=== PATIENT | male | born 1940 | race Caucasian/White ===

== ENCOUNTER → 2016-12-24 | Outpatient (CLI) | payer MEDICARE, OTHER | END | disposition home or self-care (01) | LOC: Rad HDHVI 09:37 | PROVIDERS: ATTEND Internal Medicine Cardiovascular Disease | DX: I35.8 Other nonrheumatic aortic valve disorders (principal) | CPT/HCPCS: 93306 ==

== ENCOUNTER → 2019-10-06 | Emergency (ER) | payer MEDICARE, OTHER ==
[~2019-10-06] VITALS: Ht 177.8 cm; Wt 61.2 kg
[2019-10-06 11:21] LABS: Basophils # (auto) 0.1 10 ^3/uL (0-0.2); Basophils % (auto) 0.8 % (0.0-2.0); Eosinophils # (auto) 0 10 ^3/uL (0-0.8); Eosinophils % (auto) 0.3 % (0.0-7.0); Hematocrit 47.1 % (41.0-53.0); Hemoglobin 15.8 g/dL (13.5-17.5); Lymphocytes # (auto) 0.8 10 ^3/uL (0.4-5.4); Lymphocytes % (auto) 9.8 % (10.0-50.0); Mean Corpuscular Hemoglobin 31.9 pg (28.0-32.0); Mean Corpuscular Hgb Conc. 33.4 g/dL (32.0-36.0); Mean Corpuscular Volume 95.3 fL (80.0-100.0); Monocytes # (auto) 0.4 10 ^3/uL (0-1.3); Monocytes % (auto) 4.8 % (0.0-12.0); Neutrophils # (auto) 6.9 10 ^3/uL (1.6-8.6); Neutrophils % (auto) 84.3 % (37.0-80.0); Platelet Count (auto) 191 10^3/uL (140-450); Red Blood Cells 4.95 10^6/uL (4.5-5.90); Red Cell Distribution Width 12.9 % (11.8-14.3); White Blood Cell 8.2 10^3/uL (4.4-10.8)
[2019-10-06 11:36] LABS: INR 1.06 (0.9-1.15); Partial Thromboplastin Time 28.1 sec (23.64-32.05)
[2019-10-06 11:40] LABS: Albumin 3.7 g/dL (3.4-5.0); Calcium 9.2 mg/dL (8.5-10.1); Magnesium 2.3 mg/dL (1.6-2.6); Potassium 4.6 mmol/L (3.5-5.1)
[2019-10-06 11:46] LABS: BUN/Creatinine Ratio 26.3; Bilirubin, Total 0.7 mg/dL (0.2-1.0); Total Protein 8.1 g/dL (6.4-8.2)
[2019-10-06 12:15] VITALS: BP 130/77
== END | disposition home or self-care (01) ==
LOC: ER 10:36
DX: I62.00 Nontraumatic subdural hemorrhage, unspecified (principal); I11.0 Hypertensive heart disease with heart failure; I50.9 Heart failure, unspecified; F17.210 Nicotine dependence, cigarettes, uncomplicated; R77.8 Other specified abnormalities of plasma proteins
CPT/HCPCS: 36415; 70450; 71046; 80053; 83735; 83880; 84484; 85025; 85610; 85730; 93005

== ENCOUNTER → 2024-03-19 | Outpatient (CLI) | payer MEDICARE, OTHER ==
[~2024-03-19] MED LIST: ASPI81CH49 PO; CETI-120 PO; ESOM40CA83 PO; SIMV40TA18 PO
== END | disposition home or self-care (01) ==
LOC: Rad HDHVI 10:02
PROVIDERS: ATTEND Internal Medicine Cardiovascular Disease
DX: I11.0 Hypertensive heart disease with heart failure (principal); I50.43 Acute on chronic combined systolic (congestive) and diastolic (congestive) heart failure
CPT/HCPCS: 93306

== ENCOUNTER → 2024-03-27 | Outpatient (CLI) | payer MEDICARE, OTHER ==
[~2024-03-27] VITALS: Ht 177.8 cm; Wt 63.5 kg
[~2024-03-27] MED LIST changes: +ADENOSINE 53 MG in GIVE UN-DILUTED 0 ML IV ONE; +ADENOSINE 90 MG/30 ML INJ IV ONE
== END | disposition home or self-care (01) ==
LOC: Rad HDHVI 13:23
PROVIDERS: ATTEND Internal Medicine Cardiovascular Disease
DX: I49.1 Atrial premature depolarization (principal); I25.10 Atherosclerotic heart disease of native coronary artery without angina pectoris; I11.0 Hypertensive heart disease with heart failure; I50.43 Acute on chronic combined systolic (congestive) and diastolic (congestive) heart failure; E78.00 Pure hypercholesterolemia, unspecified; E86.1 Hypovolemia; I25.2 Old myocardial infarction; F17.210 Nicotine dependence, cigarettes, uncomplicated; Z86.73 Personal history of transient ischemic attack (TIA), and cerebral infarction without residual deficits
CPT/HCPCS: 78452; 93005; 96374; 96375; A9500; J0153

== ENCOUNTER → 2024-04-25 | Outpatient (CLI) | payer MEDICARE, OTHER ==
[~2024-04-25] MED LIST changes: -ADENOSINE 53 MG in GIVE UN-DILUTED 0 ML IV ONE; -ADENOSINE 90 MG/30 ML INJ IV ONE
[2024-04-25 10:48] VITALS: BP 110/70; PULSE 90; RESP 17; O2SAT 96
[2024-04-25 10:59] VITALS: BP 128/66; PULSE 86; RESP 16; O2SAT 92
== END | disposition home or self-care (01) ==
LOC: CHF HDHVI 10:49
PROVIDERS: ATTEND Internal Medicine Cardiovascular Disease
DX: Z01.818 Encounter for other preprocedural examination (principal); I50.9 Heart failure, unspecified; I25.10 Atherosclerotic heart disease of native coronary artery without angina pectoris
CPT/HCPCS: G0463

== ENCOUNTER → 2024-05-07 | Outpatient (CLI) | payer MEDICARE, OTHER ==
[~2024-05-07] MED LIST changes: +CETI10CA PO; +COCOOIL XX; +COEN30CA10 PO; +ESOM40CA39 PO; +FAMO20TA10 PO; +GING550C4 PO; +KRIL300C2 PO; +MULTCHW OR; +NAPHDRO11 OP; +NITR0.4S29 SL; +OMEGCAP2 PO; +POM; +POM PO; +TURM450C OR
[2024-05-07 09:59] VITALS: BP 130/71; PULSE 74; RESP 16; O2SAT 94
[2024-05-07 10:10] VITALS: BP 139/59; PULSE 76; RESP 16; O2SAT 94
--- NOTE | 2024-05-07 14:21 | DVH ---
XY CHEST TWO VIEWS ROUTINE CLINICAL HISTORY: PRE OP, pain COMPARISON: CHEST TWO VIEWS ROUTINE on DOS: 10/06/19 TECHNIQUE: Frontal and lateral view of the chest was obtained FINDINGS: Lines and Tubes: None Lungs: No focal consolidation. Pleura: No effusion. No pneumothorax. Cardiomediastinal contours: Unremarkable Bones: No acute osseous abnormality. IMPRESSION: No acute cardiopulmonary disease.
== END | disposition home or self-care (01) ==
LOC: Rad HDHVI 09:50
PROVIDERS: ATTEND Internal Medicine Cardiovascular Disease
DX: Z01.818 Encounter for other preprocedural examination (principal); I49.1 Atrial premature depolarization; R94.31 Abnormal electrocardiogram [ECG] [EKG]; R53.83 Other fatigue; R06.02 Shortness of breath; R07.9 Chest pain, unspecified
CPT/HCPCS: 36415; 71046; 80048; 85025; 85610; 85730; 93005; G0463

== ENCOUNTER 2024-05-10 07:09 | Day surgery (SDC) | payer MEDICARE, OTHER ==
[2024-05-07 12:10] LABS: Basophils # (auto) 0 10 ^3/uL (0-0.2); Basophils % (auto) 0.6 % (0.0-2.0); Eosinophils # (auto) 0.1 10 ^3/uL (0-0.8); Eosinophils % (auto) 1.8 % (0.0-7.0); Hematocrit 46.7 % (41.0-53.0); Hemoglobin 15.6 g/dL (13.5-17.5); Lymphocytes # (auto) 1.4 10 ^3/uL (0.4-5.4); Mean Corpuscular Hemoglobin 31.5 pg (28.0-32.0); Mean Corpuscular Hgb Conc. 33.4 g/dL (32.0-36.0); Mean Corpuscular Volume 94.5 fL (80.0-100.0); Monocytes # (auto) 0.5 10 ^3/uL (0-1.3); Monocytes % (auto) 9.9 % (0.0-12.0); Neutrophils % (auto) 60.7 % (37.0-80.0); Nucleated Red Blood Cells % 0.1 %; Platelet Count (auto) 183 10^3/uL (140-450); Red Blood Cells 4.94 10^6/uL (4.5-5.90); Red Cell Distribution Width 13.8 % (11.8-14.3)
[2024-05-07 12:19] LABS: INR 1.02 (0.9-1.15); Partial Thromboplastin Time 27.9 SEC (24.5-34.5); Prothrombin Time 10.8 sec (9.3-11.8)
[2024-05-07 12:55] LABS: Chloride 103 mmol/L (98-107); Potassium 4.8 mmol/L (3.5-5.1); Sodium 140 mmol/L (136-145)
[2024-05-07 12:56] LABS: Anion Gap 1 (5-15)
[2024-05-07 12:57] LABS: Calcium 9.8 mg/dL (8.7-10.4)
[2024-05-07 13:01] LABS: BUN/Creatinine Ratio 21.8 (10.0-20.0); Blood Urea Nitrogen 17 mg/dL (9-23); Glucose 90 mg/dL (74-106)
[2024-05-07 13:07] LABS: Carbon Dioxide 36 mmol/L (20-31)
[2024-05-10] VITALS (8 sets, daily range): BP systolic 116–156; BP diastolic 65–93; PULSE 63–78; RESP 12–21; O2SAT 90–96
[~2024-05-10] VITALS: Ht 177.8 cm; Wt 64.9 kg
[~2024-05-10 07:09] MED LIST changes: -ASPI81CH49 PO; -CETI-120 PO; -ESOM40CA83 PO; -SIMV40TA18 PO
[2024-05-10] MEDS ORDERED: IOHEXOL 350 MG/ML 100ML IJ ONE ×2 (07:30→09:06)
[2024-05-10] MEDS ORDERED: HEPARIN IN NS 1000Units/500mL 1,500 ML ONE (07:30)
[2024-05-10] MEDS ORDERED: LIDOCAINE 2%HCL (LOCAL ANESTH.) INJ 20ML MDV ONE ×2 (08:25)
[2024-05-10] MEDS ORDERED: ANGIOMAX 250 MG VIAL IV ONE (08:36)
[2024-05-10] MEDS ORDERED: SODIUM CHL 0.9% 0 ML ONE (08:37)
[2024-05-10] MEDS ORDERED: MIDAZOLAM HCL 2MG/2ML 2ml VIAL (1mg/ml) ONE (08:37)
[2024-05-10] MEDS ORDERED: fentaNYL CITRATE 100 MCG/2 ML VL ONE (08:37)
--- NOTE | 2024-05-10 10:42 | DVHHP ---
ADMIT DATE: 05/10/2024 HISTORY OF PRESENT ILLNESS: The patient is 83 years old well known to me with history of organic heart disease. A. Hypertension. B. Coronary artery disease. C. 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 D. Now with complex of increasing chest pain, shortness of breath with exertion. Stress Cardiolite shows the patient to have slightly more inferior wall reversibility and depressed left ventricular ejection fraction of 45%-50% and because of the above presentation, it was felt that the patient should undergo coronary angiography. Risks and benefits were explained to the patient. He is also having exertional chest discomfort as well at times and that too is concerning. PERTINENT MEDICAL HISTORY: Significant for: * Hypertension. * Abdominal aortic aneurysm, status post stent graft placement. * History of TIA and CVA as well * History of hyperlipidemia. REVIEW OF SYSTEMS: Denies any fever, chills, melena, hematochezia. No hematemesis or hemoptysis. No seizure disorder. No movement disorder. No history of any lung disease such as COPD or reactive airway disease. No history of tobacco or alcohol use. No history of any abdominal symptoms such as diverticulitis or diverticulosis. No history of any irritable bowel syndrome or inflammatory bowel disease. Denies any history of rheumatologic disorder as well. PHYSICAL EXAMINATION: VITAL SIGNS: Blood pressure is 143/80, pulse of 70, O2 saturation 98% on room air. HEENT: Pupils are reactive. Funduscopic exam shows no AV nicking, no exudates, no papilledema. Extraocular muscles are intact. Sclerae anicteric. Mucous membranes are dry. Oral mucosa moist. Posterior pharynx without any exudates. NECK: No nuchal rigidity appreciated. No cervical adenopathy. No supraclavicular adenopathy. Carotid pulses are 2+ and symmetrical. PULMONARY: Clear to auscultation. Tympanic to percussion. No rhonchi, no wheezes. No egophony. CARDIOVASCULAR: Regular rate without S3, without S4. PMI is not displaced. There is a 2/6 crescendo-decrescendo murmur along the left sternal border without any radiation. ABDOMEN: Soft. Nontender. Normal bowel sound. Liver approximately 5 cm by percussion. No epigastric tenderness. No suprapubic tenderness. No CVA tenderness. NEUROLOGIC: The patient is intact. DTRs are 2+ symmetrical. Cranial nerves 2 through 12 within normal limits. Sensory and motor modalities are intact. Negative for ataxia. Negative for Babinski. Negative for pronator drift. EXTREMITIES: 1+ pulses bilaterally as well. Thus, the patient with increasing symptoms of shortness of breath and some chest pain on exertion now to undergo coronary angiography to define coronary anatomy. Further recommendations after the angiogram. Mike Lino MD SA/[facility]ALIN[facility]/G[facility] TID: [id number] RECEIPT: [id number]
--- NOTE | 2024-05-10 10:42 | DVHDS ---
DATE OF DISCHARGE: 05/10/2024 DISCHARGE DIAGNOSES: * The patient with mild pulmonary hypertension. * Occluded right coronary artery with bridging collaterals from the left. Chronic previous angiogram similarly showed the same anatomy. * EF around 50%. * Mild mitral, aortic valve gradient. * Mild to moderate mitral regurgitation. At this time, continue all current medications, no changes are required. Aggressive risk modification. Pulmonary hypertensive therapy should be considered and the patient may benefit from EECP. Stable at the time of discharge. DISPOSITION: Home. ACTIVITY: As instructed. DIET: Will be 2 gram sodium diet. Mike Lino MD SA/SANDOR TID: [id number] RECEIPT: [id number]
--- NOTE | 2024-05-10 10:54 | DVHOP ---
DATE OF SURGERY: 05/10/2024 PROCEDURES PERFORMED: * Selective left and right coronary angiography. * Ventriculogram. * [place]-Lulu reading. * Conscious sedation. * Right iliac angiography. DESCRIPTION OF PROCEDURE: The patient was prepped and draped in a sterile condition. A 1% Xylocaine used to anesthetize the right groin. Using a Cook needle, the right femoral artery was engaged with Seldinger technique, a 6-Kyrgyz sheath in the right femoral artery. Similarly, a 6-[place]z sheath introduced in the right femoral vein. Using 6-K[place]z balloon-tipped thermodilution catheter, right-sided pressure tracings were obtained. Then, using a 6-[place] JL4 catheter and 6-[place] JR4 catheter, selective left and right coronary angiographies were performed. Using 6-[place] pigtail catheter, ventriculogram was done. Total contrast used was 60 mL Optiray. Total fluoro time was 2 minutes. There were no complications. The patient tolerated the procedure well. Right femoral arteriotomy site was closed using the Angio-Seal. RESULTS: * Left main without any flow restrictive lesion. * Left anterior descending a mild intimal irregularity without any flow restrictive lesion. * Circumflex, small nondominant vessel without any flow restrictive lesion. * Right coronary artery; however, was occluded with bridging collaterals from the left. * Left ventricular function showed mild inferior apical hypokinesis with an estimated EF of 50% with an LVEDP of 15 mmHg with 10 mm gradient across the aortic valve. * Right heart catheterization showed RA pressure of 5, RV pressure of 47/5, PA pressure of 47/15 and capillary wedge pressure of 15 with prominent V waves consistent with mitral regurgitation. Thus, the patient with an elevated PA pressure with possible mitral regurgitation. At this time, aggressive risk modification. The patient may be a candidate for EECP to improve collateral circulation and pulmonary pressure treatment will be considered. If the patient's echo shows severe mitral regurgitation, will be considered for mitral valve repair as well. We will continue to follow the patient. Mike Lino MD SA/PANDA TID: [id number] RECEIPT: [id number]
== END 2024-05-10 11:32 | disposition home or self-care (01) ==
LOC: CATH 07:09
PROVIDERS: ATTEND Internal Medicine Cardiovascular Disease
DX: I25.10 Atherosclerotic heart disease of native coronary artery without angina pectoris (principal); I11.0 Hypertensive heart disease with heart failure; I50.9 Heart failure, unspecified; E78.5 Hyperlipidemia, unspecified; F17.210 Nicotine dependence, cigarettes, uncomplicated; Z86.73 Personal history of transient ischemic attack (TIA), and cerebral infarction without residual deficits; Z82.49 Family history of ischemic heart disease and other diseases of the circulatory system
CPT/HCPCS: 36415; 80048; 85025; 85610; 85730; 93460; J1644; J2250; J3010; Q9967

== ENCOUNTER → 2025-05-15 | Outpatient (CLI) | payer MEDICARE, OTHER | END | disposition home or self-care (01) | LOC: Rad HDHVI 14:06 | PROVIDERS: ATTEND Internal Medicine Cardiovascular Disease | DX: I35.8 Other nonrheumatic aortic valve disorders (principal); I10 Essential (primary) hypertension | CPT/HCPCS: 93306 ==